=== PATIENT | female | born 1955 | race Caucasian/White ===

== ENCOUNTER → 2021-04-03 | Outpatient (CLI) | payer OTHER | LOC: HEART 5 09:34 | DX: I48.91 Unspecified atrial fibrillation (principal); I50.22 Chronic systolic (congestive) heart failure; I42.0 Dilated cardiomyopathy; I50.31 Acute diastolic (congestive) heart failure; I07.1 Rheumatic tricuspid insufficiency | CPT/HCPCS: 93306 ==